=== PATIENT | female | born 1990 | race Caucasian/White ===

== ENCOUNTER 2016-05-31 08:24 | Outpatient (CLI) | payer MEDICAID ==
[~2016-05-31] VITALS: Ht 177.8 cm; Wt 118.8 kg
[~2016-05-31 08:24] MED LIST: CIPR-17 PO; CLIN300C11 PO; OMEP40CA36 PO; ONDA-42 SL; Oxycodone Hcl/Acetaminophen PO; SCR1T1 PO; SULF-222 PO
[2016-05-31 08:45] VITALS: BP 132/81
[2016-05-31] MEDS ORDERED: FLU TRIvalent (5 YOA+) 2016-17 (AFLURIA) 0.5 ML IM ONE (09:45)
[2016-05-31 09:55] LABS: MEAN PLATELET VOLUME 9.4 FL (7.4-10.4); RED BLOOD COUNT 3.73 10^6/uL (4.35-5.85); RED CELL DISTRIBUTION WIDTH 13.3 % (10.0-14.5)
[2016-05-31 09:58] LABS: ALANINE AMINOTRANSFERASE 16 U/L (0-55); ALBUMIN 3.4 G/DL (3.2-4.5); ANION GAP 8 MMOL/L (5-14); ASPARTATE AMINO TRANSFERASE 12 U/L (5-34); BILIRUBIN,TOTAL 0.3 MG/DL (0.1-1.0); BLOOD UREA NITROGEN 6 MG/DL (7-18); BUN/CREATININE RATIO 10; CALCIUM 8.4 MG/DL (8.5-10.1); CARBON DIOXIDE 18 MMOL/L (21-32); CHLORIDE 109 MMOL/L (98-107); CREATININE SERUM 0.59 MG/DL (0.60-1.30); GFR ESTIMATED > 60; GLUCOSE 80 MG/DL (70-105); POTASSIUM 3.8 MMOL/L (3.6-5.0); SODIUM 135 MMOL/L (135-145); TOTAL PROTEIN 6.1 G/DL (6.4-8.2)
[2016-05-31] MEDS ORDERED: PREN-37 PO (10:13)
--- NOTE | 2016-06-06 13:48 | Physician Query-Final Dx ---
SUNIL GREENE 06/06/16 1348: Clinic Account Progress/Dx Physician Query: Please give diagnosis Date of Service May 31, 2016 at 08:24 PETEY WEN DO 06/18/16 1244: Clinic Account Progress/Dx DIAGNOSIS: Diagnosis 1. 20 week gestational age 2. Abdominal pain SUNIL GREENE Jun 06, 2016 13:48 PETEY WEN DO Jun 18, 2016 12:44
== END 2016-05-31 10:17 | disposition home or self-care (01) ==
LOC: WSo 08:24 → LDRP 08:24 → WSo 10:17
PROVIDERS: ATTEND Family Medicine
DX: O99.89 Other specified diseases and conditions complicating pregnancy, childbirth and the puerperium (principal); R10.10 Upper abdominal pain, unspecified; Z3A.20 20 weeks gestation of pregnancy
CPT/HCPCS: 36415; 80053; 85027; 99213

== ENCOUNTER → 2016-06-01 | Outpatient (CLI) | payer MEDICAID ==
[~2016-06-01] MED LIST changes: +PREN-37 PO
--- NOTE | 2016-06-01 12:47 | Diagnostic Imaging Report ---
OB ultrasound. INDICATION: Uncertain dates. FINDINGS: The previous OB ultrasound exam performed on 03/07/2016 noted a single live intrauterine of approximately 9 weeks 2 days gestation +/- 1 week. On this exam, the fetus is again identified. The fetus is in transverse presentation. heart motion is noted although the heart rate is not recorded. There are no abnormalities identified. However, the cord insertion is not particularly well visualized. The growth parameters are fairly uniform and have progressed as expected since the prior exam. The growth parameters are as follows: BPD: 4.78, 20 weeks 4 days. Head circumference: 19.28, 20 weeks 4 days. Abdominal circumference: 17.67, 22 weeks 4 days. Femur length: 3.55, 21 weeks 2 days. The placenta is posterior and there is no previa. The amniotic fluid volume is within normal limits. The cervix is measured and is estimated to be 4.1 cm in length. IMPRESSION: 1. There is a single live fetus of approximately 20 weeks 4 days gestation +/- 1 week. The EDC remains October 08, 2016. 2. There are no abnormalities identified although the cord insertion is not well visualized. It may prove worthwhile to have a short-term (4-6 weeks) follow-up exam for further evaluation of the cord insertion. 3. The growth parameters have progressed as expected since the prior study. Dictated by: Dictated on workstation # [id number]
== END ==
LOC: RAD 09:53
PROVIDERS: ATTEND Family Medicine
DX: Z34.82 Encounter for supervision of other normal pregnancy, second trimester (principal)
CPT/HCPCS: 76805

== ENCOUNTER 2016-09-13 17:35 | Outpatient (CLI) | payer MEDICAID ==
[2016-09-13] VITALS (11 sets, daily range): BP systolic 127–182; BP diastolic 73–101
[~2016-09-13] VITALS: Ht 177.8 cm; Wt 125.2 kg
--- NOTE | 2016-09-13 19:42 | Diagnostic Imaging Report ---
INDICATION: Hypertension. TECHNIQUE: Multiple real-time grayscale images were obtained of the gravid uterus in various projections. FINDINGS: There is a single living intrauterine in cephalic presentation. The heart rate is 140 beats per minute. The amniotic fluid index is 9.3. The placenta is to the right. biophysical profile score is 8 out of 8. IMPRESSION: Normal biophysical profile score of 8 out of 8. Dictated by: Dictated on workstation # [id number]
--- NOTE | 2016-09-14 20:07 | Physician Query-Final Dx ---
WILLY WILLETT 09/14/16 2007: Clinic Account Progress/Dx Physician Query: Please give diagnosis Date of Service September 13, 2016 at 17:35 RADHA ARMENTA MD 09/20/16 2155: Clinic Account Progress/Dx DIAGNOSIS: Diagnosis Chronic HTN in third trimester rule out Pre eclampsia Proteinuria WILLY WILLETT September 14, 2016 20:07 RADHA ARMENTA MD September 20, 2016 21:55
== END 2016-09-13 20:48 | disposition home or self-care (01) ==
LOC: LDRP 17:35 → WSo 17:35
PROVIDERS: ATTEND Family Medicine
DX: O10.913 Unspecified pre-existing hypertension complicating pregnancy, third trimester (principal); O12.13 Gestational proteinuria, third trimester; Z3A.36 36 weeks gestation of pregnancy
CPT/HCPCS: 76819; 99213

== ENCOUNTER → 2016-09-13 | Outpatient (CLI) | payer MEDICAID ==
[2016-09-13 17:27] LABS: PROTEIN/CREATININE RATIO 0.09
== END ==
LOC: LAB 16:50
PROVIDERS: ATTEND Family Medicine
DX: O12.13 Gestational proteinuria, third trimester (principal)
CPT/HCPCS: 82570; 84156

== ENCOUNTER → 2016-09-14 | Outpatient (CLI) | payer MEDICAID ==
[2016-09-14 21:32] LABS: PROTEIN/CREATININE RATIO 0.08
== END ==
LOC: LAB 19:28
PROVIDERS: ATTEND Family Medicine
DX: O12.13 Gestational proteinuria, third trimester (principal)
CPT/HCPCS: 82570; 84156

== ENCOUNTER 2016-10-03 18:08 | Inpatient (IN) | payer MEDICAID ==
[~2016-10-03] VITALS: Ht 177.8 cm; Wt 124.3 kg
[2016-10-03 18:30] VITALS: BP 131/73
[2016-10-03] MEDS ORDERED: MINERAL OIL CONCENTRATE 99.9% 15 ML UDC TOP PRN (18:45)
[2016-10-03] MEDS: D5 LR IV SOLUTION 1,000 ML IV SCH (18:52)
[2016-10-03 19:20] VITALS: BP 148/78
[2016-10-03 19:38] LABS: BASOPHILS % (AUTO) 0 % (0-10); EOSINOPHILS # (AUTO) 0.3 10^3/uL (0.0-0.3); EOSINOPHILS % (AUTO) 2 % (0-10); LYMPHOCYTES # (AUTO) 2.5 X 10^3 (1.0-4.0); LYMPHOCYTES % (AUTO) 21 % (12-44); MEAN CORPUSCULAR HEMOGLOBIN 30 PG (25-34); MEAN CORPUSCULAR HGB CONC 34 G/DL (32-36); MEAN CORPUSCULAR VOLUME 89 FL (80-99); MEAN PLATELET VOLUME 9.5 FL (7.4-10.4); MONOCYTES % (AUTO) 8 % (0-12); NEUTROPHILS % (AUTO) 68 % (42-75); PLATELET COUNT 249 10^3/uL (130-400); RED BLOOD COUNT 4.03 10^6/uL (4.35-5.85); RED CELL DISTRIBUTION WIDTH 14.6 % (10.0-14.5); WHITE BLOOD COUNT 11.8 10^3/uL (4.3-11.0)
[2016-10-03] MEDS ORDERED: DINOPROSTONE 10 MG (CERVIDIL) INSERT ONE (19:38)
[2016-10-03] MEDS ORDERED: DINOPROSTONE 10 MG (CERVIDIL) INSERT PV NR (19:45)
[2016-10-03 19:52] LABS: BILIRUBIN,URINE NEGATIVE (NEGATIVE); KETONES,URINE NEGATIVE (NEGATIVE); LEUKOCYTE ESTERASE ,URINE 2+ (NEGATIVE); NITRITE,URINE NEGATIVE (NEGATIVE); PH,URINE 6 (5-9); PROTEIN,URINE 1+ (NEGATIVE); UROBILINOGEN,URINE NORMAL (NORMAL)
[2016-10-03 20:05] LABS: ALANINE AMINOTRANSFERASE 11 U/L (0-55); ALBUMIN 3.1 G/DL (3.2-4.5); ASPARTATE AMINO TRANSFERASE 10 U/L (5-34); BILIRUBIN,TOTAL 0.3 MG/DL (0.1-1.0); BLOOD UREA NITROGEN 7 MG/DL (7-18); BUN/CREATININE RATIO 11; CALCIUM 8.9 MG/DL (8.5-10.1); CARBON DIOXIDE 19 MMOL/L (21-32); CREATININE SERUM 0.62 MG/DL (0.60-1.30); GFR ESTIMATED > 60; GLUCOSE 110 MG/DL (70-105); TOTAL PROTEIN 6.2 G/DL (6.4-8.2)
[2016-10-03 20:10] LABS: CALCIUM OXALATE CRYSTALS,UR FEW /LPF
[2016-10-03 20:20] LABS: ANION GAP 11 MMOL/L (5-14); CHLORIDE 108 MMOL/L (98-107); POTASSIUM 3.3 MMOL/L (3.6-5.0); SODIUM 138 MMOL/L (135-145)
[2016-10-03 21:10] VITALS: BP 131/71
[2016-10-03 21:43] LABS: PROTEIN/CREATININE RATIO 0.09
[2016-10-03] MEDS ORDERED: CATHETER FLUSH 10 ML SYR IV SCH (22:00)
[2016-10-03 22:10] VITALS: BP 128/74
[2016-10-03 23:10] VITALS: BP 133/67
[2016-10-04] VITALS (39 sets, daily range): BP systolic 110–161; BP diastolic 55–99
[2016-10-04] MEDS: D5 LR IV SOLUTION 1,000 ML IV SCH ×2 (02:49→10:23)
--- NOTE | 2016-10-04 08:17 | OB Labor & Delivery Record ---
L&D History Date of Service Date of Service: Oct 04, 2016 History Expected Date of Delivery: Oct 11, 2016 Gestational Age in Weeks: 38 Hx : 3 Hx Para: 2 Complications Events: Routine care (Chronic HTN) Operative Indications (Cesarea: N/A-Vaginal Delivery Intrapartal Events: None L&D Stage1 Stage One Onset of Labor - Date: Oct 04, 2016 Onset of Labor - Time: 04:00 Monitors and Tracing Monitor Mode: External Heart Rate: 130 Station: -2 Vital Signs VS - Last 72 Hours, by Label 10/03/16 10/03/16 10/03/16 10/03/16 18:30 19:20 21:10 22:10 Temp 98.9 99.0 97.8 Pulse 95 90 75 75 Resp 18 18 18 18 B/P (MAP) 131/73 148/78 131/71 128/74 10/03/16 10/04/16 10/04/16 10/04/16 23:10 00:10 02:10 03:10 Pulse 81 75 81 76 Resp 18 18 18 18 B/P (MAP) 133/67 110/59 137/65 129/59 10/04/16 10/04/16 10/04/16 10/04/16 04:10 05:10 06:10 07:10 Pulse 68 78 79 84 Resp 18 18 18 18 B/P (MAP) 114/55 136/85 130/62 135/83 Rupture of Membranes Spontaneous Ruture of Membrane: No Amniotic Membrane Rupture Time: 08:14 Amniotic Membrane Fluid Desc.: Clear Progress/Notes 0814 AROM by ANALI Holguin / L&D Stage2 Monitors and Tracing Monitor Mode: External Heart Rate: 130 Monitor Decelerations: Early Short Term Variability: Present Position: Left Occiput Anterior Presentation: Vertex Cord Descript/Complications Cord Vessel Description: 3 Vessels Delivery Type Infant Delivery Method: Spontaneous Vaginal Anterior Shoulder: Right Episiotomy/Perineal Laceration Laceraction(s)/Extensions: No Condition of Delivery Delivery Date & Time: 10/04/2016 1515 1 minute Comment: 8 5 minute Comment: 9 Notes BW [id number]#2 Condition of Condition of : Living Exam: No Observed Abnormalities Resuscitation Resuscitation: N/A - Spontaneous Resp L&D Stage3 Stage Three Stage III Date: Oct 04, 2016 Stage III Time: 15:27 Pictocin Pitocin Administration Comment: 2 Bags Open Placenta Delivery Placenta Delivery: Spontaneous Delivery Summary Summary Vaginal blood loss >500ml: No 150 Attending at delivery: Kiersten Condition of Delivery Examined: Cervix Examined Post Hemorrhage: No Condition of Mother Stable in Delivery Suite Condition of (s) Stable in Delivery Suite with parents RADHA ARMENTA MD Oct 04, 2016 08:17
--- NOTE | 2016-10-04 08:23 | History & Physical-OB ---
OB - Chief Complaint & HPI Date Date of Admission: Date of Admission: October 03, 2016 at 18:08 Chief Complaint/History OB-Reason for Admission/Chief: Induction of Labor (Chronic HTN) Hx : 3 Hx Para: 2 Expected Date of Delivery: Oct 11, 2016 Gestational Age in Weeks: 38 Gestational Age in Days: 6 Indication for induction: medical complication (Chronic HTN) History of Labs B+, Ab neg, RPR/HIV/Hep B NR, Rub Imm, GBS neg Allergies and Home Medications Allergies Uncoded Allergies: EYE DROPS (Allergy, Mild, 10/03/16) Home Medications Vit/Iron Fumarate/FA 1 Each Tablet, 1 EACH PO kimberly, (Reported) OB - History Hx of Present Ultrasounds: Normal mid trimester US Obstetrical Complications: Other (chronic HTN) Medical Complications: None Obstetrical History Hx : 3 Hx Para: 2 Delivery History Adverse Rxn to Tranfusion: No Patient Past Medical History Chronic HTN Social History/Family History HIV/AIDS: No Recent Infectious Disease Expo: No Sexually Transmitted Disease: No Alcohol Use: Denies Use Recreational Drug Use: Yes Smoking Cessation: Current some day smoker (MJ) Immunizations Tetanus Booster (TDap): Less than 5yrs Rubella: immune RPR/VDRL: Negative GBS Status: Negative HBsAG: Negative OB - Admission Exam Physical Exam Vitals: Vital Signs 10/03/16 10/04/16 22:10 07:10 Temp 97.8 Pulse 84 Resp 18 B/P (MAP) 135/83 HEENT: NCAT Lungs: Clear Abdomen: Non tender Extremities: Normal Reflexes: Normal Cervical Dilatation: 4cm Effacement: 50% Station: -1 Membranes: Intact Heart Rate: 140's Accelerations: Accelerations Present Decelerations: No Decelerations Short Term Variability: Present Labs Laboratory Tests Test 10/03/16 18:52 10/03/16 19:15 Range/Units White Blood Count 11.8 H 4.3-11.0 10^3/uL Red Blood Count 4.03 L 4.35-5.85 10^6/uL Hemoglobin 12.0 11.5-16.0 G/DL Hematocrit 36 35-52 % Mean Corpuscular Volume 89 80-99 FL Mean Corpuscular Hemoglobin 30 25-34 PG Mean Corpuscular Hemoglobin Concent 34 32-36 G/DL Red Cell Distribution Width 14.6 H 10.0-14.5 % Platelet Count 249 130-400 10^3/uL Mean Platelet Volume 9.5 7.4-10.4 FL Neutrophils (%) (Auto) 68 42-75 % Lymphocytes (%) (Auto) 21 12-44 % Monocytes (%) (Auto) 8 0-12 % Eosinophils (%) (Auto) 2 0-10 % Basophils (%) (Auto) 0 0-10 % Neutrophils # (Auto) 8.0 H 1.8-7.8 X 10^3 Lymphocytes # (Auto) 2.5 1.0-4.0 X 10^3 Monocytes # (Auto) 1.0 0.0-1.0 X 10^3 Eosinophils # (Auto) 0.3 0.0-0.3 10^3/uL Basophils # (Auto) 0.0 0.0-0.1 10^3/uL Sodium Level 138 135-145 MMOL/L Potassium Level 3.3 L 3.6-5.0 MMOL/L Chloride Level 108 H 98-107 MMOL/L Carbon Dioxide Level 19 L 21-32 MMOL/L Anion Gap 11 5-14 MMOL/L Blood Urea Nitrogen 7 7-18 MG/DL Creatinine 0.62 0.60-1.30 MG/DL Estimat Glomerular Filtration Rate > 60 BUN/Creatinine Ratio 11 Glucose Level 110 H 70-105 MG/DL Calcium Level 8.9 8.5-10.1 MG/DL Total Bilirubin 0.3 0.1-1.0 MG/DL Aspartate Amino Transf (AST/SGOT) 10 5-34 U/L Alanine Aminotransferase (ALT/SGPT) 11 0-55 U/L Alkaline Phosphatase 94 40-136 U/L Total Protein 6.2 L 6.4-8.2 G/DL Albumin 3.1 L 3.2-4.5 G/DL Urine Color YELLOW Urine Clarity SLIGHTLY CLOUDY Urine pH 6 5-9 Urine Specific [place] 1.020 1.016-1.022 Urine Protein 14 H 6-12 MG/DL Urine Glucose (UA) NEGATIVE NEGATIVE Urine Ketones NEGATIVE NEGATIVE Urine Nitrite NEGATIVE NEGATIVE Urine Bilirubin NEGATIVE NEGATIVE Urine Urobilinogen NORMAL NORMAL MG/DL Urine Leukocyte Esterase 2+ H NEGATIVE Urine RBC (Auto) NEGATIVE NEGATIVE Urine RBC NONE /HPF Urine WBC 5-10 H /HPF Urine Squamous Epithelial Cells 10-25 H /HPF Urine Crystals PRESENT H /LPF Urine Calcium Oxalate Crystals FEW H /LPF Urine Bacteria TRACE /HPF Urine Casts NONE /LPF Urine Mucus NEGATIVE /LPF Urine Culture Indicated YES Urine Creatinine 162 H 30-125 MG/DL Urine Protein/Creatinine Ratio 0.09 Urine Opiates Screen NEGATIVE NEGATIVE Urine Oxycodone Screen NEGATIVE NEGATIVE Urine Methadone Screen NEGATIVE NEGATIVE Urine Propoxyphene Screen NEGATIVE NEGATIVE Urine Barbiturates Screen NEGATIVE NEGATIVE Ur Tricyclic Antidepressants Screen NEGATIVE NEGATIVE Urine Phencyclidine Screen NEGATIVE NEGATIVE Urine Amphetamines Screen NEGATIVE NEGATIVE Urine Methamphetamines Screen NEGATIVE NEGATIVE Urine Benzodiazepines Screen NEGATIVE NEGATIVE Urine Cocaine Screen NEGATIVE NEGATIVE Urine Cannabinoids Screen POSITIVE H NEGATIVE OB - Assessment/Plan/Diagnosis Assessment Assessment: induction of labor Plan Plan: Expectant Management, Induction Induction Method: other (Cervidil) Copy Copies To 1: RADHA ARMENTA MD, HOLLY R MD Oct 04, 2016 08:23
[2016-10-04] MEDS ORDERED: OXYTOCIN/NORMAL SALINE 500 ML IV SCH ×2 (08:27→15:55)
[2016-10-04] MEDS ORDERED: BUTORPHANOL INJ 2 MG/ML (STADOL) VIAL IV ONE (12:15)
[2016-10-04] MEDS ORDERED: WITCH HAZEL(TUCKS) 40 EA JAR TOP PRN (16:00)
[2016-10-04] MEDS ORDERED: BENZOCAINE/MENTHOL (DERMOPLAST) 56 ML CAN TP PRN (16:00)
[2016-10-04] MEDS ORDERED: CATHETER FLUSH 10 ML SYR IV SCH (22:00)
[2016-10-04] MEDS: IBUPROFEN 600 MG (MOTRIN) TAB PO SCH (23:25)
[2016-10-05 04:42] VITALS: BP 106/69
[2016-10-05] MEDS: IBUPROFEN 600 MG (MOTRIN) TAB PO SCH ×2 (06:00→14:27)
[2016-10-05 06:53] LABS: BASOPHILS % (AUTO) 0 % (0-10); EOSINOPHILS # (AUTO) 0.2 10^3/uL (0.0-0.3); EOSINOPHILS % (AUTO) 2 % (0-10); LYMPHOCYTES # (AUTO) 3.4 X 10^3 (1.0-4.0); LYMPHOCYTES % (AUTO) 23 % (12-44); MEAN CORPUSCULAR HEMOGLOBIN 30 PG (25-34); MEAN CORPUSCULAR HGB CONC 33 G/DL (32-36); MEAN CORPUSCULAR VOLUME 91 FL (80-99); MEAN PLATELET VOLUME 10.1 FL (7.4-10.4); MONOCYTES # (AUTO) 1.6 X 10^3 (0.0-1.0); MONOCYTES % (AUTO) 11 % (0-12); NEUTROPHILS # (AUTO) 9.5 X 10^3 (1.8-7.8); NEUTROPHILS % (AUTO) 64 % (42-75); PLATELET COUNT 193 10^3/uL (130-400); RED BLOOD COUNT 3.59 10^6/uL (4.35-5.85); RED CELL DISTRIBUTION WIDTH 14.4 % (10.0-14.5); WHITE BLOOD COUNT 14.8 10^3/uL (4.3-11.0)
[2016-10-05] MEDS ORDERED: PRENATAL VITAMIN 1 EA TAB PO SCH (07:00)
[2016-10-05 08:20] VITALS: BP 102/57
[2016-10-05] MEDS ORDERED: IBUP-1773 PO (08:30)
--- NOTE | 2016-10-05 08:34 | Discharge Instructions ---
Discharge Inst-Women's Serv Depart Medications New, Converted or Re-Newed RX: Transmitted to Pharmacy New Medications: Ibuprofen (Ibuprofen) 600 Mg Tablet 600 MG PO Q6H PRN for PAIN-MILD TO MODERATE, #60 TAB 0 Refills Continued Medications: Vit/Iron Fumarate/FA ( Tablet) 1 Each Tablet 1 EACH PO kimberly, TAB Follow Up/Instructions Goal/Follow Up: Follow up with Dr. Burch in 6 weeks for visit. Activity Activity: Activity as Tolerated (avoid strenuous activity x 6 weeks) Driving Instructions: You May Drive Nothing Inside Vagina: No Douching, No [place], No Tampons Diet Discharge Diet: Regular Diet Symptoms to Report to : Fever Over 101 Degrees F, Pain/Pressure in Chest, Heart Beat Irreg/Pounding, Vaginal Bleeding Increase, Cramps in Feet or Legs, Vaginal Discharge Foul, Dizziness/Fainting, Shortness of Breath For Any Problems or Questions: Contact Your Physician Copies To 1: RADHA BURCH MD, BETHANY N MD Oct 05, 2016 08:34
--- NOTE | 2016-10-05 08:34 | Discharge Summary ---
Diagnosis/Chief Complaint Date of Admission October 03, 2016 at 18:08 Date of Discharge October 05, 2016 Admission Diagnosis Admission Diagnosis 38 week gestation Chronic hypertension Induction of labor Discharge Diagnosis s/p spontaneous vaginal delivery with no lacerations asymptomatic anemia Chief Complaint/HPI Chief Complaint/HPI 26 yo at 38w6d admitted for IOL due to chronic hypertension. Discharge Summary-Simple/Stand Procedures Spontaneous vaginal delivery Discharge Physical Examination Allergies: Uncoded Allergies: EYE DROPS (Allergy, Mild, 10/03/16) Vitals & I&Os Vital Sign - Last 12Hours Date Time Temp Pulse Resp B/P (MAP) Pulse Ox O2 Delivery O2 Flow Rate FiO2 10/05/16 04:42 97.7 75 18 106/69 96 General Appearance: Alert, No Acute Distress Respiratory: Clear to Auscultation, Normal Air Movement Cardiovascular: Regular Rate, No Murmurs Abdominal: Other (fundus firm below umbilicus) Extremities: No Edema Psych/Mental Status: Mental Status NL Hospital Course Patient admitted and underwent uncomplicated IOL with uncomplicated and uncomplicated course with asymptomatic mild anemia. Labs Laboratory Tests Test 10/03/16 18:52 10/03/16 19:15 10/05/16 05:50 Range/Units White Blood Count 11.8 H 14.8 H 4.3-11.0 10^3/uL Red Blood Count 4.03 L 3.59 L 4.35-5.85 10^6/uL Hemoglobin 12.0 10.7 L 11.5-16.0 G/DL Hematocrit 36 33 L 35-52 % Mean Corpuscular Volume 89 91 80-99 FL Mean Corpuscular Hemoglobin 30 30 25-34 PG Mean Corpuscular Hemoglobin Concent 34 33 32-36 G/DL Red Cell Distribution Width 14.6 H 14.4 10.0-14.5 % Platelet Count 249 193 130-400 10^3/uL Mean Platelet Volume 9.5 10.1 7.4-10.4 FL Neutrophils (%) (Auto) 68 64 42-75 % Lymphocytes (%) (Auto) 21 23 12-44 % Monocytes (%) (Auto) 8 11 0-12 % Eosinophils (%) (Auto) 2 2 0-10 % Basophils (%) (Auto) 0 0 0-10 % Neutrophils # (Auto) 8.0 H 9.5 H 1.8-7.8 X 10^3 Lymphocytes # (Auto) 2.5 3.4 1.0-4.0 X 10^3 Monocytes # (Auto) 1.0 1.6 H 0.0-1.0 X 10^3 Eosinophils # (Auto) 0.3 0.2 0.0-0.3 10^3/uL Basophils # (Auto) 0.0 0.0 0.0-0.1 10^3/uL Sodium Level 138 135-145 MMOL/L Potassium Level 3.3 L 3.6-5.0 MMOL/L Chloride Level 108 H 98-107 MMOL/L Carbon Dioxide Level 19 L 21-32 MMOL/L Anion Gap 11 5-14 MMOL/L Blood Urea Nitrogen 7 7-18 MG/DL Creatinine 0.62 0.60-1.30 MG/DL Estimat Glomerular Filtration Rate > 60 BUN/Creatinine Ratio 11 Glucose Level 110 H 70-105 MG/DL Calcium Level 8.9 8.5-10.1 MG/DL Total Bilirubin 0.3 0.1-1.0 MG/DL Aspartate Amino Transf (AST/SGOT) 10 5-34 U/L Alanine Aminotransferase (ALT/SGPT) 11 0-55 U/L Alkaline Phosphatase 94 40-136 U/L Total Protein 6.2 L 6.4-8.2 G/DL Albumin 3.1 L 3.2-4.5 G/DL Urine Color YELLOW Urine Clarity SLIGHTLY CLOUDY Urine pH 6 5-9 Urine Specific [place] 1.020 1.016-1.022 Urine Protein 14 H 6-12 MG/DL Urine Glucose (UA) NEGATIVE NEGATIVE Urine Ketones NEGATIVE NEGATIVE Urine Nitrite NEGATIVE NEGATIVE Urine Bilirubin NEGATIVE NEGATIVE Urine Urobilinogen NORMAL NORMAL MG/DL Urine Leukocyte Esterase 2+ H NEGATIVE Urine RBC (Auto) NEGATIVE NEGATIVE Urine RBC NONE /HPF Urine WBC 5-10 H /HPF Urine Squamous Epithelial Cells 10-25 H /HPF Urine Crystals PRESENT H /LPF Urine Calcium Oxalate Crystals FEW H /LPF Urine Bacteria TRACE /HPF Urine Casts NONE /LPF Urine Mucus NEGATIVE /LPF Urine Culture Indicated YES Urine Creatinine 162 H 30-125 MG/DL Urine Protein/Creatinine Ratio 0.09 Urine Opiates Screen NEGATIVE NEGATIVE Urine Oxycodone Screen NEGATIVE NEGATIVE Urine Methadone Screen NEGATIVE NEGATIVE Urine Propoxyphene Screen NEGATIVE NEGATIVE Urine Barbiturates Screen NEGATIVE NEGATIVE Ur Tricyclic Antidepressants Screen NEGATIVE NEGATIVE Urine Phencyclidine Screen NEGATIVE NEGATIVE Urine Amphetamines Screen NEGATIVE NEGATIVE Urine Methamphetamines Screen NEGATIVE NEGATIVE Urine Benzodiazepines Screen NEGATIVE NEGATIVE Urine Cocaine Screen NEGATIVE NEGATIVE Urine Cannabinoids Screen POSITIVE H NEGATIVE Discharge Instructions to patient/family Please see electonic discharge instructions given to patient. Discharge Medications Reviewed and agree with Discharge Medication list on patient's Discharge Instruction sheet Clinical Quality Measures DVT/VTE Risk/Contraindication: Risk Factor Score Per Nursin RFS Level Per Nursing on Admit: 3=High Copy Copies To 1: TOMASA FAUST MD, BETHANY N MD Oct 05, 2016 8:34 am
== END 2016-10-05 18:30 | disposition home or self-care (01) | DRG 774 ==
LOC: LDRP 18:08
PROVIDERS: ADMIT Family Medicine; ATTEND Family Medicine
PROC: 3E0P7GC Introduction of Other Therapeutic Substance into Female Reproductive, Via Natural or Artificial Opening (ICD-10-PCS; 2016-10-03)
PROC: 10E0XZZ Delivery of Products of Conception, External Approach (ICD-10-PCS; principal; 2016-10-04)
DX: O10.92 Unspecified pre-existing hypertension complicating childbirth (principal); Z37.0 Single live birth; Z3A.38 38 weeks gestation of pregnancy
CPT/HCPCS: 36415; 80053; 80306; 81000; 82570; 84156; 85025; 86850; 86900; 86901; 87088

== ENCOUNTER 2017-09-29 13:09 | Emergency (ER) | payer SELFPAY ==
[~2017-09-29] VITALS: Ht 177.8 cm; Wt 104.3 kg
[~2017-09-29 13:09] MED LIST changes: +IBUP-1773 PO
--- OUTSIDE RECORDS SUMMARY | 2017-09-29 13:14 | XMS REPORT ---
Author Author RADHA ARMENTA Organization [facility] Address [address] [place] [address] Care Team Providers Care Conference Planner Name Role Phone RADHA ARMENTA Unavailable PROBLEMS Type Condition ICD9-CM Code [id number] Code Onset Dates Condition Status SNOMED Code Problem Family history of diabetes mellitus Z83.3 Active 736654799 Problem Chronic tension-type headache, not intractable G44.229 Active 882882293 Problem Tobacco use Z72.0 Active 372488970 Problem Depressed mood F32.9 Active 417567044 Problem BMI 37.0-37.9, adult Z68.37 Active 814413168477521 Problem Surveillance of contraceptive injection Z30.42 Active 837618096 Problem Family history of breast cancer Z80.3 Active 280954499 Problem Essential hypertension I10 Active 03432144 Problem Chronic hypertension during O10.919 Active 71673120 Problem Encounter for dental examination Z01.20 Active 288405320 Problem Atopic dermatitis, unspecified type L20.9 Active 12788852 Problem Chronic hypertension affecting O10.919 Active 78276426 Problem Obesity affecting O99.210 Active 131981853360 ALLERGIES No Known Allergies SOCIAL HISTORY Never Assessed PLAN OF CARE Activity Details Follow Up 4 Weeks Reason: VITAL SIGNS Height 5'10" in 2016-06-27 Weight 265.6 lbs 2016-06-27 Temperature 98.3 degrees Fahrenheit 2016-06-27 Heart Rate 82 bpm 2016-06-27 Respiratory Rate 20 2016-06-27 BMI 38.11 kg/m2 2016-06-27 Blood pressure systolic 130 mmHg 2016-06-27 Blood pressure diastolic 68 mmHg 2016-06-27 MEDICATIONS Medication Instructions Dosage Frequency Start Date End Date Duration Status Triamcinolone Acetonide 0.1 % Externally Twice a day 1 application to affected area 12h Mar, Active 28-0.8 MG Active RESULTS Name Result Date Reference Range UA OB DIP (IN HOUSE) 2016-06-27 Glucose negative Protein trace PROCEDURES Procedure Date Ordered Result Body Site URINE-NO MICRO Jun 27, 2016 IMMUNIZATIONS No Known Immunizations MEDICAL (GENERAL) HISTORY Type Description Date Medical History asthma as a child Medical History depression Medical History Due 10/12/2016 Surgical History cholecystectomy Surgical History Right Leg- Fibula and Tibula repair (6th grade) Hospitalization History Surgery(s)/Childbirth(s) only
--- OUTSIDE RECORDS SUMMARY | 2017-09-29 13:14 | XMS REPORT ---
Author Author RADHA ARMENTA Organization [facility] Address [address] [place] [address] Care Team Providers Care Trekking Guide Name Role Phone RADHA ARMENTA Unavailable PROBLEMS Type Condition ICD9-CM Code GKA32-OW Code Onset Dates Condition Status SNOMED Code Problem Family history of breast cancer Z80.3 Active 809853828 Problem Tobacco use Z72.0 Active 646297622 Problem Family history of diabetes mellitus Z83.3 Active 522884745 Problem Depressed mood F32.9 Active 943374862 Problem BMI 37.0-37.9, adult Z68.37 Active 593481372849730 Problem Surveillance of contraceptive injection Z30.42 Active 502864640 Problem Essential hypertension I10 Active 04629114 Problem Chronic hypertension during O10.919 Active 92527280 Problem Atopic dermatitis, unspecified type L20.9 Active 45144977 Problem Chronic tension-type headache, not intractable G44.229 Active 475547809 Problem Chronic hypertension affecting O10.919 Active 60850434 Problem Obesity affecting O99.210 Active 134585089098 ALLERGIES No Information ENCOUNTERS Encounter Location Date Diagnosis [facility] [address], [place] [address] Nov, care and examination Z39.2 and Essential hypertension I10 [facility] [address] [address] Oct, [facility] [id number] [place] [address] Oct, [facility] [address] [place] [address] Oct, Breast feeding status of mother Z39.1 [facility] [address] [place] [address] September, 38 weeks gestation of Z3A.38 ; Third trimester Z33.1 and Chronic hypertension affecting O10.919 [place] [id number] [place] [address] September, 37 weeks gestation of Z3A.37 ; Chronic hypertension during O10.919 and Third trimester Z34.93 [place] [id number] [place] [address] September, Proteinuria affecting , third trimester O12.13 [place] [id number] [place] [address] September, Proteinuria affecting , third trimester O12.13 [place] [id number] [place] [address] September, care in third trimester Z34.93 ; Chronic hypertension during O10.919 and 36 weeks gestation of Z3A.36 [place] [id number] [place] [address] September, care in third trimester Z34.93 ; Proteinuria affecting , third trimester O12.13 and 35 weeks gestation of Z3A.35 [place] [address] [place] [address] September, Normal in multigravida Z34.80 ; Third trimester Z33.1 and 34 weeks gestation of Z3A.34 [place] [address] [place] [address] Aug, Normal in multigravida Z34.80 ; 32 weeks gestation of Z3A.32 and Third trimester Z33.1 [place] [id number] [place] [address] Aug, Normal in multigravida Z34.80 ; Encounter for immunization Z23 and 31 weeks gestation of Z3A.31 [place] [id number] [place] [address] Jul, 28 weeks gestation of Z3A.28 [facility] [id number] [id number] Jul, Encounter for dental examination Z01.20 [facility] [address] [place] [address] Jun, 24 weeks gestation of Z3A.24 ; Second trimester Z33.1 and Obesity affecting O99.210 [place] [id number] [place] [address] May, Second trimester Z33.1 and 20 weeks gestation of Z3A.20 [place] [id number] [place] [address] Apr, Normal in multigravida Z34.80 and 16 weeks gestation of Z3A.16 [place] [id number] [place] [address] Apr, Elevated blood pressure affecting in first trimester, antepartum O13.1 [place] [id number] [place] [address] Mar, Normal in multigravida Z34.80 ; First trimester Z33.1 and 12 weeks gestation of Z3A.12 [facility] [address] [place] [id number] [place] [address] Mar, Gastroenteritis K52.9 [facility] [address] [place] [id number] [place] [address] Mar, Atopic dermatitis, unspecified type L20.9 [place] [id number] [place] [address] Feb, [place] [id number] [place] [address] Feb, care in first trimester Z34.91 and Normal in multigravida Z34.[address] [id number] [address] Feb, [facility] [address] [facility] [address] [id number] [address] May, Well woman exam Z01.419 ; Encounter for screening for malignant neoplasm of cervix Z12.4 ; Family history of diabetes mellitus Z83.3 ; Family history of breast cancer Z80.3 ; Surveillance of contraceptive injection Z30.42 ; Encounter for counseling regarding contraception Z30.9 ; Chronic tension-type headache, not intractable G44.229 ; Routine screening for STI (sexually transmitted infection) Z11.3 ; BMI 37.0-37.9, adult Z68.37 ; Depressed mood F32.9 and Tobacco use Z72.0 [facility] [address] [facility] [address] [id number] [address] May, Encounter for IUD removal Z30.432 and Encounter for initial prescription of injectable contraceptive Z30.013 IMMUNIZATIONS No Known Immunizations SOCIAL HISTORY Never Assessed REASON FOR VISIT Referral added PLAN OF CARE VITAL SIGNS MEDICATIONS No Known Medications RESULTS No Results PROCEDURES No Known procedures INSTRUCTIONS MEDICATIONS ADMINISTERED No Known Medications MEDICAL (GENERAL) HISTORY Type Description Date Medical History asthma as a child Medical History depression Medical History Due 10/12/2016 Surgical History cholecystectomy Surgical History Right Leg- Fibula and Tibula repair (6th grade) Hospitalization History Surgery(s)/Childbirth(s) only
--- OUTSIDE RECORDS SUMMARY | 2017-09-29 13:14 | XMS REPORT ---
Author Author RADHA ARMENTA [facility] Address [address] [place] [address] Care Team Providers Care Fly Tier Name Role Phone RADHA ARMENTA Unavailable PROBLEMS Type Condition ICD9-CM Code [id number] Code Onset Dates Condition Status SNOMED Code Problem Family history of diabetes mellitus Z83.3 Active 056655470 Problem Chronic tension-type headache, not intractable G44.229 Active 725792344 Problem Tobacco use Z72.0 Active 146612630 Problem Depressed mood F32.9 Active 138875495 Problem BMI 37.0-37.9, adult Z68.37 Active 799717233881638 Problem Surveillance of contraceptive injection Z30.42 Active 280596585 Problem Family history of breast cancer Z80.3 Active 784410429 Problem Essential hypertension I10 Active 44465893 Problem Chronic hypertension during O10.919 Active 99699655 Problem Encounter for dental examination Z01.20 Active 232329293 Problem Atopic dermatitis, unspecified type L20.9 Active 41392374 Problem Chronic hypertension affecting O10.919 Active 86370779 Problem Obesity affecting O99.210 Active [id number] ALLERGIES No Information SOCIAL HISTORY Never Assessed PLAN OF CARE VITAL SIGNS MEDICATIONS No Known Medications RESULTS Name Result Date Reference Range GLUCOSE FLOR 1 HOUR 2016-07-25 Gestational Diabetes Screen 112 65-139 CBC 2016-07-25 WBC 9.6 3.4-10.8 RBC 3.52 3.77-5.28 Hemoglobin 10.6 11.1-15.9 Hematocrit 31.5 34.0-46.6 MCV 90 79-97 MCH 30.1 26.6-33.0 MCHC 33.7 31.5-35.7 RDW 13.5 12.3-15.4 Platelets 251 150-379 Neutrophils 68 Lymphs 21 Monocytes 6 Eos 4 Basos 0 Neutrophils (Absolute) 6.5 1.4-7.0 Lymphs (Absolute) 2.0 0.7-3.1 Monocytes(Absolute) 0.6 0.1-0.9 Eos (Absolute) 0.4 0.0-0.4 Baso (Absolute) 0.0 0.0-0.2 Immature Granulocytes 1 Immature Grans (Abs) 0.1 0.0-0.1 PROCEDURES Procedure Date Ordered Result Body Site [facility] July 25, 2016 VENIPUNCT, ROUTINE* July 25, 2016 IMMUNIZATIONS No Known Immunizations MEDICAL (GENERAL) HISTORY Type Description Date Medical History asthma as a child Medical History depression Medical History Due 10/12/2016 Surgical History cholecystectomy Surgical History Right Leg- Fibula and Tibula repair (6th grade) Hospitalization History Surgery(s)/Childbirth(s) only
--- OUTSIDE RECORDS SUMMARY | 2017-09-29 13:14 | XMS REPORT ---
Author Author RADHA ARMENTA Organization [facility] Address [address] [place] [address] Care Team Providers Care Chilling Hood Operator Name Role Phone RADHA ARMENTA Unavailable PROBLEMS Type Condition ICD9-CM Code [id number] Code Onset Dates Condition Status SNOMED Code Problem Family history of diabetes mellitus Z83.3 Active 330660430 Problem Chronic tension-type headache, not intractable G44.229 Active 845206992 Problem Tobacco use Z72.0 Active 366373805 Problem Depressed mood F32.9 Active 008490860 Problem BMI 37.0-37.9, adult Z68.37 Active 703498128545853 Problem Surveillance of contraceptive injection Z30.42 Active 737640255 Problem Family history of breast cancer Z80.3 Active 866150528 Problem Essential hypertension I10 Active 49880856 Problem Chronic hypertension during O10.919 Active 18119422 Problem Encounter for dental examination Z01.20 Active 183978325 Problem Atopic dermatitis, unspecified type L20.9 Active 01767324 Problem Chronic hypertension affecting O10.919 Active 98276841 Problem Obesity affecting O99.210 Active 957531399988 ALLERGIES No Known Allergies SOCIAL HISTORY No smoking Hx information available PLAN OF CARE Activity Details Follow Up 4 Weeks w/ Kiersten Reason: VITAL SIGNS Height 5'10" in 2016-05-30 Weight 265.0 lbs 2016-05-30 Temperature 98.0 degrees Fahrenheit 2016-05-30 BMI 38.02 kg/m2 2016-05-30 Blood pressure systolic 136 mmHg 2016-05-30 Blood pressure diastolic 70 mmHg 2016-05-30 MEDICATIONS No Known Medications RESULTS Name Result Date Reference Range UA OB DIP (IN HOUSE) 2016-05-30 Glucose negative Protein negative PROCEDURES Procedure Date Ordered Related Diagnosis Body Site URINE-NO MICRO May 30, 2016 Office Visit, Est Pt., Level 3 May 30, 2016 IMMUNIZATIONS No Known Immunizations
--- OUTSIDE RECORDS SUMMARY | 2017-09-29 13:14 | XMS REPORT ---
Author Author RADHA ARMENTA Organization [facility] Address [address] [place] [address] Care Team Providers Care Bee Raiser Name Role Phone RADHA ARMENTA Unavailable PROBLEMS Type Condition ICD9-CM Code [id number]-FN Code Onset Dates Condition Status SNOMED Code Problem Family history of diabetes mellitus Z83.3 Active 606744865 Problem Chronic tension-type headache, not intractable G44.229 Active 991935489 Problem Tobacco use Z72.0 Active 829983335 Problem Depressed mood F32.9 Active 226733337 Problem BMI 37.0-37.9, adult Z68.37 Active 397558748643062 Problem Surveillance of contraceptive injection Z30.42 Active 368225205 Problem Family history of breast cancer Z80.3 Active 845152041 Problem Essential hypertension I10 Active 97930689 Problem Chronic hypertension during O10.919 Active 29712503 Problem Encounter for dental examination Z01.20 Active 672870783 Problem Atopic dermatitis, unspecified type L20.9 Active 29914594 Problem Chronic hypertension affecting O10.919 Active 35610839 Problem Obesity affecting O99.210 Active 237902967811 ALLERGIES No Information SOCIAL HISTORY Never Assessed PLAN OF CARE Activity Details Follow Up IOL this week Reason: VITAL SIGNS Height 5'10" in 2016-10-02 Weight 273.7 lbs 2016-10-02 Temperature 98.0 degrees Fahrenheit 2016-10-02 BMI 39.27 kg/m2 2016-10-02 Blood pressure systolic 140 mmHg 2016-10-02 Blood pressure diastolic 88 mmHg 2016-10-02 MEDICATIONS No Known Medications RESULTS No Results PROCEDURES Procedure Date Ordered Result Body Site URINE-NO MICRO October 02, 2016 IMMUNIZATIONS No Known Immunizations MEDICAL (GENERAL) HISTORY Type Description Date Medical History asthma as a child Medical History depression Medical History Due 10/12/2016 Surgical History cholecystectomy Surgical History Right Leg- Fibula and Tibula repair (6th grade) Hospitalization History Surgery(s)/Childbirth(s) only
--- OUTSIDE RECORDS SUMMARY | 2017-09-29 13:15 | XMS REPORT ---
Author Author RADHA ARMENTA Organization [facility] Address [address] [place] [address] Care Team Providers Care Rent And Housing Investigator Name Role Phone RADHA ARMENTA Unavailable PROBLEMS Type Condition ICD9-CM Code PEH03-WI Code Onset Dates Condition Status SNOMED Code Problem Family history of diabetes mellitus Z83.3 Active 890586999 Problem Chronic tension-type headache, not intractable G44.229 Active 208700991 Problem Tobacco use Z72.0 Active 525741000 Problem Depressed mood F32.9 Active 555246562 Problem BMI 37.0-37.9, adult Z68.37 Active 923831435962091 Problem Surveillance of contraceptive injection Z30.42 Active 301694286 Problem Family history of breast cancer Z80.3 Active 102457668 Problem Essential hypertension I10 Active 43825038 Problem Chronic hypertension during O10.919 Active 93058307 Problem Encounter for dental examination Z01.20 Active 932153598 Problem Atopic dermatitis, unspecified type L20.9 Active 28782246 Problem Chronic hypertension affecting O10.919 Active 74803986 Problem Obesity affecting O99.210 Active 088170483676 ALLERGIES No Information SOCIAL HISTORY Never Assessed PLAN OF CARE VITAL SIGNS MEDICATIONS Medication Instructions Dosage Frequency Start Date End Date Duration Status Breast Pump electric as directed Oct, Active Breast Pump - as directed Oct, Active RESULTS No Results PROCEDURES No Known procedures IMMUNIZATIONS No Known Immunizations MEDICAL (GENERAL) HISTORY Type Description Date Medical History asthma as a child Medical History depression Medical History Due 10/12/2016 Surgical History cholecystectomy Surgical History Right Leg- Fibula and Tibula repair (6th grade) Hospitalization History Surgery(s)/Childbirth(s) only
--- OUTSIDE RECORDS SUMMARY | 2017-09-29 13:15 | XMS REPORT ---
Author Author JOEL ANTUNEZ [facility] Address [address] [place] [address] Care Team Providers Care Landscape Nurseryman Name Role Phone HARMONY JOEL Unavailable PROBLEMS Type Condition ICD9-CM Code LKQ37-CR Code Onset Dates Condition Status SNOMED Code Problem Family history of diabetes mellitus Z83.3 Active 631447591 Problem Chronic tension-type headache, not intractable G44.229 Active 985788260 Problem Tobacco use Z72.0 Active 237495915 Problem Depressed mood F32.9 Active 118361047 Problem BMI 37.0-37.9, adult Z68.37 Active 240726473314008 Problem Surveillance of contraceptive injection Z30.42 Active 597282214 Problem Family history of breast cancer Z80.3 Active 672976438 Problem Essential hypertension I10 Active 64735012 Problem Chronic hypertension during O10.919 Active 05432795 Problem Encounter for dental examination Z01.20 Active 389286017 Problem Atopic dermatitis, unspecified type L20.9 Active 17307433 Problem Chronic hypertension affecting O10.919 Active 52612248 Problem Obesity affecting O99.210 Active 830677061103 ALLERGIES No Known Allergies SOCIAL HISTORY Never Assessed PLAN OF CARE Activity Details Follow Up After October 12, 2016 Reason:MARIA ESTHER/BW/PANO VITAL SIGNS Heart Rate 77 bpm 2016-07-12 Blood pressure systolic 105 mmHg 2016-07-12 Blood pressure diastolic 54 mmHg 2016-07-12 MEDICATIONS Medication Instructions Dosage Frequency Start Date End Date Duration Status Triamcinolone Acetonide 0.1 % Externally Twice a day 1 application to affected area 12h Mar, Active 28-0.8 MG Active RESULTS No Results PROCEDURES Procedure Date Ordered Result Body Site PROPHYLAXIS - ADULT July 12, 2016 TOPICAL FLUORIDE VARNISH July 12, 2016 IMMUNIZATIONS No Known Immunizations MEDICAL (GENERAL) HISTORY Type Description Date Medical History asthma as a child Medical History depression Medical History Due 10/12/2016 Surgical History cholecystectomy Surgical History Right Leg- Fibula and Tibula repair (6th grade) Hospitalization History Surgery(s)/Childbirth(s) only
--- OUTSIDE RECORDS SUMMARY | 2017-09-29 13:15 | XMS REPORT ---
Author Author TOMASA FAUST Organization [facility] Address [address] [place] [address] Care Team Providers Care Refining Engineer Name Role Phone TOMASA FAUST Unavailable PROBLEMS Type Condition ICD9-CM Code YUR76-RD Code Onset Dates Condition Status SNOMED Code Problem Family history of diabetes mellitus Z83.3 Active 044493752 Problem Chronic tension-type headache, not intractable G44.229 Active 579213941 Problem Tobacco use Z72.0 Active 292686736 Problem Depressed mood F32.9 Active 767617749 Problem BMI 37.0-37.9, adult Z68.37 Active 247873644492657 Problem Surveillance of contraceptive injection Z30.42 Active 634009329 Problem Family history of breast cancer Z80.3 Active 947470583 Problem Essential hypertension I10 Active 46605764 Problem Chronic hypertension during O10.919 Active 65491253 Problem Encounter for dental examination Z01.20 Active 607872771 Problem Atopic dermatitis, unspecified type L20.9 Active 21426107 Problem Chronic hypertension affecting O10.919 Active 82448149 Problem Obesity affecting O99.210 Active 652690041453 ALLERGIES No Information SOCIAL HISTORY Never Assessed [...]
--- OUTSIDE RECORDS SUMMARY | 2017-09-29 13:15 | XMS REPORT ---
Author Author RADHA ARMENTA Organization [facility] Address [address] [place] [address] Care Team Providers Care Physician General Internal Medicine Name Role Phone RADHA ARMENTA Unavailable PROBLEMS Type Condition ICD9-CM Code EEV78-GY Code Onset Dates Condition Status SNOMED Code Problem Family history of breast cancer Z80.3 Active 179733832 Problem Tobacco use Z72.0 Active 161643795 Problem Family history of diabetes mellitus Z83.3 Active 001194021 Problem Depressed mood F32.9 Active 099588441 Problem BMI 37.0-37.9, adult Z68.37 Active 326961526549562 Problem Surveillance of contraceptive injection Z30.42 Active 828442351 Problem Essential hypertension I10 Active 66785900 Problem Chronic hypertension during O10.919 Active 64182617 Problem Atopic dermatitis, unspecified type L20.9 Active 89402949 Problem Chronic tension-type headache, not intractable G44.229 Active 030118275 Problem Chronic hypertension affecting O10.919 Active 32815845 Problem Obesity affecting O99.210 Active 496939998789 ALLERGIES No Information ENCOUNTERS Encounter Location Date Diagnosis [facility] [address], [place] [address] Nov, care and examination Z39.2 and Essential hypertension I10 [facility] [address] [address] Oct, [facility] [id number] [place] [address] Oct, [facility] [id number] [place] [address] Oct, Breast feeding status of mother Z39.1 [facility] [address] [place] [address] September, 38 weeks gestation of Z3A.38 ; Third trimester Z33.1 and Chronic hypertension affecting O10.919 [place] [id number] [place] [address] September, 37 weeks gestation of Z3A.37 ; Chronic hypertension during O10.919 and Third trimester Z34.93 [place] [address] [id number] [place] [address] September, Proteinuria affecting , third trimester O12.13 [place] [id number] [place] [address] September, Proteinuria affecting , third trimester O12.13 [place] [address] [id number] [place] [address] September, care in third trimester Z34.93 ; Chronic hypertension during O10.919 and 36 weeks gestation of Z3A.36 [place] [address] [id number] [place] [address] September, care in third trimester Z34.93 ; Proteinuria affecting , third trimester O12.13 and 35 weeks gestation of Z3A.35 [place] [address] [place] [address] September, Normal in multigravida Z34.80 ; Third trimester Z33.1 and 34 weeks gestation of Z3A.34 [place] [address] [place] [address] Aug, Normal in multigravida Z34.80 ; 32 weeks gestation of Z3A.32 and Third trimester Z33.1 [place] [id number] [place] [address] Aug, Normal in multigravida Z34.80 ; Encounter for immunization Z23 and 31 weeks gestation of Z3A.31 [place] [address] [id number] [place] [address] Jul, 28 weeks gestation of Z3A.28 [facility] [id number] [id number] Jul, Encounter for dental examination Z01.20 [facility] [address] [place] [address] Jun, 24 weeks gestation of Z3A.24 ; Second trimester Z33.1 and Obesity affecting O99.210 [place] [id number] [place] [address] May, Second trimester Z33.1 and 20 weeks gestation of Z3A.20 [place] [id number] [place] [address] Apr, Normal in multigravida Z34.80 and 16 weeks gestation of Z3A.16 [place] [id number] [place] [address] Apr, Elevated blood pressure affecting in first trimester, antepartum O13.1 [place] [id number] [place] [address] Mar, Normal in multigravida Z34.80 ; First trimester Z33.1 and 12 weeks gestation of Z3A.12 [facility] [address] [place] [id number] [place] [address] Mar, Gastroenteritis K52.9 [facility] [address] [place] [id number] [place] [address] Mar, Atopic dermatitis, unspecified type L20.9 [place] [id number] [place] [address] Feb, [place] [id number] [place] [address] Feb, care in first trimester Z34.91 and Normal in multigravida Z34.[id number] [address] Feb, [place] [address] [facility] [id number] [address] May, Well woman exam Z01.419 ; Encounter [...] Depressed mood F32.9 and Tobacco use Z72.0 [place] [address] [facility] [id number] [address] May, Encounter for IUD removal Z30.432 and Encounter for initial prescription of injectable contraceptive Z30.013 IMMUNIZATIONS No Known Immunizations SOCIAL HISTORY Never Assessed REASON FOR VISIT OB f/u-1 wk -- kishore florentino PLAN OF CARE Activity Details Follow Up 1 Week Reason: VITAL SIGNS Height 5'10" in 2016-09-11 Weight 277.0 lbs 2016-09-11 Temperature 98.0 degrees Fahrenheit 2016-09-11 Heart Rate 78 bpm 2016-09-11 Respiratory Rate 18 2016-09-11 BMI 39.74 kg/m2 2016-09-11 Blood pressure systolic 138 mmHg 2016-09-11 Blood pressure diastolic 90 mmHg 2016-09-11 MEDICATIONS Medication Instructions Dosage Frequency Start Date End Date Duration Status 28-0.8 MG Active RESULTS Name Result Date Reference Range LDH 2016-09-11 LDH 179 119-226 CBC 2016-09-11 WBC 12.7 3.4-10.8 RBC 3.86 3.77-5.28 Hemoglobin 11.4 11.1-15.9 Hematocrit 34.8 34.0-46.6 MCV 90 79-97 MCH 29.5 26.6-33.0 MCHC 32.8 31.5-35.7 RDW 14.5 12.3-15.4 Platelets 225 150-379 Neutrophils 66 Lymphs 21 Monocytes 9 Eos 3 Basos 0 Neutrophils (Absolute) 8.5 1.4-7.0 Lymphs (Absolute) 2.7 0.7-3.1 Monocytes(Absolute) 1.1 0.1-0.9 Eos (Absolute) 0.4 0.0-0.4 Baso (Absolute) 0.0 0.0-0.2 Immature Granulocytes 1 Immature Grans (Abs) 0.1 0.0-0.1 CMP 2016-09-11 Glucose, Serum 111 65-99 BUN 6 6-20 Creatinine, Serum 0.53 0.57-1.00 eGFR If NonAfricn Am 131 >59 eGFR If Africn Am 152 >59 BUN/Creatinine Ratio 11 9-23 Sodium, Serum 138 134-144 Potassium, Serum 3.5 3.5-5.2 Chloride, Serum 102 96-106 Carbon Dioxide, Total 19 18-29 Calcium, Serum 8.8 8.7-10.2 Protein, Total, Serum 5.7 6.0-8.5 Albumin, Serum 3.2 3.5-5.5 Globulin, Total 2.5 1.5-4.5 A/G Ratio 1.3 1.2-2.2 Bilirubin, Total <0.2 0.0-1.2 Alkaline Phosphatase, S 77 39-117 AST (SGOT) 13 0-40 ALT (SGPT) 12 0-32 UA OB DIP (IN HOUSE) 2016-09-11 Glucose negative Protein 1+ CULTURE, GBS W/ REFLEX SUSCEPTIBILITY 2016-09-11 Strep Gp B Culture+Rflx Negative Negative PROCEDURES Procedure Date Ordered Result Body Site URINE-NO MICRO September 11, 2016 [facility] September 11, 2016 VENIPUNCT, ROUTINE* September 11, 2016 INSTRUCTIONS MEDICATIONS ADMINISTERED No Known Medications MEDICAL (GENERAL) HISTORY Type Description Date Medical History asthma as a child Medical History depression Medical History Due 10/12/2016 Surgical History cholecystectomy Surgical History Right Leg- Fibula and Tibula repair (6th grade) Hospitalization History Surgery(s)/Childbirth(s) only
--- OUTSIDE RECORDS SUMMARY | 2017-09-29 13:15 | XMS REPORT ---
Author Author RADHA ARMENTA Organization [facility] Address [address] [place] [address] Care Team Providers Care Patient Access Specialist Name Role Phone RADHA ARMENTA Unavailable PROBLEMS Type Condition ICD9-CM Code CHJ94-NQ Code Onset Dates Condition Status SNOMED Code Problem Family history of diabetes mellitus Z83.3 Active 114766276 Problem Chronic tension-type headache, not intractable G44.229 Active 346322773 Problem Tobacco use Z72.0 Active 372770597 Problem Depressed mood F32.9 Active 191774998 Problem BMI 37.0-37.9, adult Z68.37 Active 574898573641368 Problem Surveillance of contraceptive injection Z30.42 Active 546115261 Problem Family history of breast cancer Z80.3 Active 033916745 Problem Essential hypertension I10 Active 95429117 Problem Chronic hypertension during O10.919 Active 46466586 Problem Encounter for dental examination Z01.20 Active 221954675 Problem Atopic dermatitis, unspecified type L20.9 Active 63798977 Problem Chronic hypertension affecting O10.919 Active 20029843 Problem Obesity affecting O99.210 Active 339148895574 ALLERGIES No Known Allergies SOCIAL HISTORY Never Assessed PLAN OF CARE Activity Details Follow Up 1 Week Reason: VITAL SIGNS Height 5'10" in 2016-09-04 Weight 275 lbs 2016-09-04 Temperature 98.0 degrees Fahrenheit 2016-09-04 Heart Rate 80 bpm 2016-09-04 Respiratory Rate 20 2016-09-04 BMI 39.45 kg/m2 2016-09-04 Blood pressure systolic 124 mmHg 2016-09-04 Blood pressure diastolic 82 mmHg 2016-09-04 MEDICATIONS Medication Instructions Dosage Frequency Start Date End Date Duration Status 28-0.8 MG Active RESULTS No Results PROCEDURES Procedure Date Ordered Result Body Site URINE-NO MICRO September 04, 2016 IMMUNIZATIONS No Known Immunizations MEDICAL (GENERAL) HISTORY Type Description Date Medical History asthma as a child Medical History depression Medical History Due 10/12/2016 Surgical History cholecystectomy Surgical History Right Leg- Fibula and Tibula repair (6th grade) Hospitalization History Surgery(s)/Childbirth(s) only
--- OUTSIDE RECORDS SUMMARY | 2017-09-29 13:15 | XMS REPORT ---
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 Name Role Phone RADHA ARMENTA Unavailable PROBLEMS Type Condition ICD9-CM Code [id number] Code Onset Dates Condition Status SNOMED Code Problem Family history of breast cancer Z80.3 Active 041072197 Problem Tobacco use Z72.0 Active 743040992 Problem Family history of diabetes mellitus Z83.3 Active 514550554 Problem Depressed mood F32.9 Active 273310245 Problem BMI 37.0-37.9, adult Z68.37 Active 569099332070977 Problem Surveillance of contraceptive injection Z30.42 Active 642445066 Problem Essential hypertension I10 Active 43225177 Problem Chronic hypertension during O10.919 Active 52194243 Problem Atopic dermatitis, unspecified type L20.9 Active 41303087 Problem Chronic tension-type headache, not intractable G44.229 Active 920934385 Problem Chronic hypertension affecting O10.919 Active 19931904 Problem Obesity affecting O99.210 Active [id number] ALLERGIES No Known Allergies ENCOUNTERS Encounter Location Date Diagnosis [place] [id number] [address] Nov, care and examination Z39.2 and Essential hypertension I10 [facility] [address] [address] Oct, [facility] [id number] [place] [address] Oct, [facility] [id number] [place] [address] Oct, Breast feeding status of mother Z39.1 [facility] [id number] [place] [address] September, 38 weeks gestation of Z3A.38 ; Third trimester Z33.1 and Chronic hypertension affecting O10.919 [place] [address] [id number] [place] [address] September, 37 weeks gestation of Z3A.37 ; Chronic hypertension during O10.919 and Third trimester Z34.93 [place] [address] [id number] [place] [address] September, Proteinuria affecting , third trimester O12.13 [place] [address] [id number] [place] [address] September, Proteinuria affecting , third trimester O12.13 [place] [address] [id number] [place] [address] September, care in third trimester Z34.93 ; Chronic hypertension during O10.919 and 36 weeks gestation of Z3A.36 [place] [address] [id number] [place] [address] September, care in third trimester Z34.93 ; Proteinuria affecting , third trimester O12.13 and 35 weeks gestation of Z3A.35 [place] [address] [place] [address] September, Normal in multigravida Z34.80 ; Third trimester Z33.1 and 34 weeks gestation of Z3A.34 [place] [address] [place] [address]- [address] Aug, Normal in multigravida Z34.80 ; 32 weeks gestation of Z3A.32 and Third trimester Z33.1 [place] [address] [id number] [place] [address] Aug, Normal in multigravida Z34.80 ; Encounter for immunization Z23 and 31 weeks gestation of Z3A.31 [place] [address] [place] [id number] [place] [address]- [address] Jul, 28 weeks gestation of Z3A.28 [facility] [id number] [id number] Jul, Encounter for dental examination Z01.20 [facility] [address] [place] [address] Jun, 24 weeks gestation of Z3A.24 ; Second trimester Z33.1 and Obesity affecting O99.210 [place] [address] [place] [id number] [place] [address] May, Second trimester Z33.1 and 20 weeks gestation of Z3A.20 [place] [address] [place] [id number] [place] [address] Apr, Normal in multigravida Z34.80 and 16 weeks gestation of Z3A.16 [place] [id number] [place] [address] Apr, Elevated blood pressure affecting in first trimester, antepartum O13.1 [place] [id number] [place] [address] 9[address]- [address] Mar, Normal in multigravida Z34.80 ; First trimester Z33.1 and 12 weeks gestation of Z3A.12 [facility] [address] [place] [id number] [place] [address] Mar, Gastroenteritis K52.9 [facility] [address] [place] [id number] [place] [address] Mar, Atopic dermatitis, unspecified type L20.9 [place] [id number] [place] [address] Feb, [place] [id number] [place] [address] Feb, care in first trimester Z34.91 and Normal in multigravida Z34.[id number] [place] [address] Feb, [facility] [address] [facility] [id number] [address] May, Well woman exam Z01.419 ; Encounter [...] Depressed mood F32.9 and Tobacco use Z72.0 [place] [address] [facility] [id number] [address] May, Encounter for IUD removal Z30.432 and Encounter for initial prescription of injectable contraceptive Z30.013 IMMUNIZATIONS No Known Immunizations SOCIAL HISTORY Never Assessed REASON FOR VISIT OB-6 week 0-- florentino ma PLAN OF CARE Activity Details Follow Up 2 Weeks for Blood pressure check Reason: VITAL SIGNS Height 5'10" in 2016-11-12 Weight 255.0 lbs 2016-11-12 Temperature 98.6 degrees Fahrenheit 2016-11-12 Heart Rate 80 bpm 2016-11-12 Respiratory Rate 20 2016-11-12 BMI 36.58 kg/m2 2016-11-12 Blood pressure systolic 150 mmHg 2016-11-12 Blood pressure diastolic 82 mmHg 2016-11-12 MEDICATIONS Medication Instructions Dosage Frequency Start Date End Date Duration Status Womens Omaira Emiliano Active RESULTS No Results PROCEDURES No Known procedures INSTRUCTIONS MEDICATIONS ADMINISTERED No Known Medications MEDICAL (GENERAL) HISTORY Type Description Date Medical History asthma as a child Medical History depression Medical History Due 10/12/2016 Surgical History cholecystectomy Surgical History Right Leg- Fibula and Tibula repair (6th grade) Hospitalization History Surgery(s)/Childbirth(s) only
--- OUTSIDE RECORDS SUMMARY | 2017-09-29 13:15 | XMS REPORT ---
Author Author RADHA ARMENTA Organization [facility] Address [address] [place] [address] Care Team Providers Care Incoming Inspector Name Role Phone RADHA ARMENTA Unavailable PROBLEMS Type Condition ICD9-CM Code [id number] Code Onset Dates Condition Status SNOMED Code Problem Family history of diabetes mellitus Z83.3 Active 379497818 Problem Chronic tension-type headache, not intractable G44.229 Active 391001528 Problem Tobacco use Z72.0 Active 809482374 Problem Depressed mood F32.9 Active 566890122 Problem BMI 37.0-37.9, adult Z68.37 Active 308198478655281 Problem Surveillance of contraceptive injection Z30.42 Active 938374710 Problem Family history of breast cancer Z80.3 Active 997819524 Problem Essential hypertension I10 Active 97935589 Problem Chronic hypertension during O10.919 Active 71315730 Problem Encounter for dental examination Z01.20 Active 564258375 Problem Atopic dermatitis, unspecified type L20.9 Active 34734263 Problem Chronic hypertension affecting O10.919 Active 40885540 Problem Obesity affecting O99.210 Active 742391429847 ALLERGIES No Information SOCIAL HISTORY Never Assessed PLAN OF CARE VITAL SIGNS MEDICATIONS No Known Medications RESULTS Name Result Date Reference Range UA OB DIP (IN HOUSE) 2016-09-20 Glucose Negative Protein Negative PROCEDURES Procedure Date Ordered Result Body Site URINE-NO MICRO September 20, 2016 IMMUNIZATIONS No Known Immunizations MEDICAL (GENERAL) HISTORY Type Description Date Medical History asthma as a child Medical History depression Medical History Due 10/12/2016 Surgical History cholecystectomy Surgical History Right Leg- Fibula and Tibula repair (6th grade) Hospitalization History Surgery(s)/Childbirth(s) only
--- OUTSIDE RECORDS SUMMARY | 2017-09-29 13:16 | XMS REPORT ---
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 Role Phone RADHA ARMENTA Unavailable PROBLEMS Type Condition ICD9-CM Code [id number] Code Onset Dates Condition Status SNOMED Code Problem Family history of diabetes mellitus Z83.3 Active 498769380 Problem Chronic tension-type headache, not intractable G44.229 Active 157632815 Problem Tobacco use Z72.0 Active 691369349 Problem Depressed mood F32.9 Active 320313408 Problem BMI 37.0-37.9, adult Z68.37 Active 309865591517379 Problem Surveillance of contraceptive injection Z30.42 Active 607456117 Problem Family history of breast cancer Z80.3 Active 989365436 Problem Essential hypertension I10 Active 77370657 Problem Chronic hypertension during O10.919 Active 90264587 Problem Encounter for dental examination Z01.20 Active 431855282 Problem Atopic dermatitis, unspecified type L20.9 Active 21808567 Problem Chronic hypertension affecting O10.919 Active 33774666 Problem Obesity affecting O99.210 Active 487642648434 ALLERGIES No Information SOCIAL HISTORY Never Assessed PLAN OF CARE Activity Details Follow Up 1 Week with BP kolton check on with NST Reason: VITAL SIGNS Height 5'10" in 2016-09-17 Weight 276.1 lbs 2016-09-17 Temperature 98.6 degrees Fahrenheit 2016-09-17 Heart Rate 77 bpm 2016-09-17 Respiratory Rate 18 2016-09-17 BMI 39.61 kg/m2 2016-09-17 Blood pressure systolic 142 mmHg 2016-09-17 Blood pressure diastolic 81 mmHg 2016-09-17 MEDICATIONS Medication Instructions Dosage Frequency Start Date End Date Duration Status 28-0.8 MG Active RESULTS Name Result Date Reference Range UA OB DIP (IN HOUSE) 2016-09-17 Glucose Negative Protein Trace PROCEDURES Procedure Date Ordered Result Body Site URINE-NO MICRO September 17, 2016 IMMUNIZATIONS No Known Immunizations MEDICAL (GENERAL) HISTORY Type Description Date Medical History asthma as a child Medical History depression Medical History Due 10/12/2016 Surgical History cholecystectomy Surgical History Right Leg- Fibula and Tibula repair (6th grade) Hospitalization History Surgery(s)/Childbirth(s) only
[2017-09-29 14:24] LABS: BASOPHILS # (AUTO) 0.1 10^3/uL (0.0-0.1); BASOPHILS % (AUTO) 0 % (0-10); EOSINOPHILS # (AUTO) 0.1 10^3/uL (0.0-0.3); EOSINOPHILS % (AUTO) 1 % (0-10); HEMATOCRIT 42 % (35-52); HEMOGLOBIN 14.6 G/DL (11.5-16.0); LYMPHOCYTES # (AUTO) 2.5 X 10^3 (1.0-4.0); LYMPHOCYTES % (AUTO) 16 % (12-44); MEAN CORPUSCULAR HEMOGLOBIN 31 PG (25-34); MEAN CORPUSCULAR HGB CONC 35 G/DL (32-36); MEAN CORPUSCULAR VOLUME 89 FL (80-99); MEAN PLATELET VOLUME 10.5 FL (7.4-10.4); MONOCYTES # (AUTO) 2.1 X 10^3 (0.0-1.0); MONOCYTES % (AUTO) 13 % (0-12); NEUTROPHILS # (AUTO) 10.7 X 10^3 (1.8-7.8); NEUTROPHILS % (AUTO) 69 % (42-75); PLATELET COUNT 309 10^3/uL (130-400); RED BLOOD COUNT 4.68 10^6/uL (4.35-5.85); RED CELL DISTRIBUTION WIDTH 13.1 % (10.0-14.5); WHITE BLOOD COUNT 15.5 10^3/uL (4.3-11.0)
[2017-09-29 14:34] LABS: ALANINE AMINOTRANSFERASE 29 U/L (0-55); ALBUMIN 4.5 GM/DL (3.2-4.5); ALKALINE PHOSPHATASE 55 U/L (40-136); BUN/CREATININE RATIO 7; CARBON DIOXIDE 23 MMOL/L (21-32); CHLORIDE 105 MMOL/L (98-107); CREATININE SERUM 0.74 MG/DL (0.60-1.30); GFR ESTIMATED > 60; GLUCOSE 97 MG/DL (70-105); POTASSIUM 3.7 MMOL/L (3.6-5.0); SODIUM 139 MMOL/L (135-145); TOTAL PROTEIN 8.2 GM/DL (6.4-8.2)
[2017-09-29 14:41] LABS: BAND NEUTROPHILS 0 %; BASOPHILS % (MANUAL) 0 %; EOSINOPHILS % (MANUAL) 1 %; LYMPHOCYTES % (MANUAL) 13 %; MONOCYTES % (MANUAL) 12 %; NEUTROPHILS % (MANUAL) 74 %; RBC MORPH NORMAL
[2017-09-29 14:49] LABS: BILIRUBIN,URINE NEGATIVE (NEGATIVE); CLARITY,URINE CLEAR; COLOR,URINE YELLOW; GLUCOSE, URINE (UA) NEGATIVE (NEGATIVE); KETONES,URINE NEGATIVE (NEGATIVE); LEUKOCYTE ESTERASE ,URINE 1+ (NEGATIVE); NITRITE,URINE NEGATIVE (NEGATIVE); PH,URINE 6 (5-9); PROTEIN,URINE NEGATIVE (NEGATIVE); UROBILINOGEN,URINE NORMAL (NORMAL)
[2017-09-29 14:58] LABS: BACTERIA,URINE NEGATIVE /HPF; WBC,URINE 0-2 /HPF
[2017-09-29] MEDS ORDERED: IOHEXOL 350 MG/ML 100 ML (OMNIPAQUE 350) VIAL IV ONE (15:30)
[2017-09-29] MEDS ORDERED: NS 250 ML (IVPB) BAG IV ONE (15:30)
--- NOTE | 2017-09-29 16:21 | Diagnostic Imaging Report ---
PROCEDURE: CT abdomen and pelvis with contrast, rule out appendicitis. TECHNIQUE: Multiple contiguous axial images were obtained through the abdomen and pelvis after the administration of intravenous contrast. INDICATION: Abdominal pain. COMPARISON: None. FINDINGS: Lung bases are clear. Cholecystectomy. The liver, pancreas, spleen, adrenals, kidneys, collecting systems, and unopacified bladder are negative. Normal appearing appendix. There is multiloculated cystic structure in the right pelvis which may be ovarian in origin. Two discrete cysts within this fluid collection measure up to 3.8 and 5.1 cm. There is small amount of fluid layering dependently in the pelvis. No free intraperitoneal air. No evidence of bowel obstruction or inflammation. No lymphadenopathy. No acute osseous findings. IMPRESSION: Multiloculated cystic mass in the right pelvis may be ovarian in origin with multiple large ovarian cyst measuring up to 5.1 cm. There is small amount of fluid layering in the pelvis. A more aggressive cystic ovarian mass, ectopic , ovarian torsion, hydrosalpinx, or an infectious process cannot be excluded. Pelvic ultrasound may be helpful for further characterization. Dictated by: Dictated on workstation # [id number]
[2017-09-29] MEDS ORDERED: fentaNYL INJECTION 100 MCG/2 ML AMP IVP ONE (18:00)
--- NOTE | 2017-09-29 18:15 | ED Abdominal Pain ---
General Chief Complaint: Abdominal/GI Problems Stated Complaint: ABD PAIN Nursing Triage Note: c/o lower abdomen pain that started on the R side 5 days ago. patient denies n/v/d. patient reports that pain began after starting taking protein supplements Sepsis Screen: No Definite Risk Source of Information: Patient Exam Limitations: No Limitations History of Present Illness Date Seen by Provider: September 29, 2017 Time Seen by Provider: 13:47 Initial Comments This 27-year-old young lady presents to the emergency room with right flank pain that has now migrated to the pelvic region bilaterally. Pain started last Saturday, September 25 and has worsened since then. Patient thought perhaps she had constipation and took some laxatives. She has had some watery stools since then. Her last bowel movement was today. She denies any fever, nausea, vomiting, dysuria, hematuria, or vaginal symptoms. She has been taking some whey protein supplements and thought perhaps her pain was related to that. Her last menstrual period was about 3 weeks ago. She is sexually active in a monogamous relationship for about the past 10 years. She denies any history of vaginal or sexually transmitted diseases. Patient states her pain is about 3/ 10 at baseline but is exacerbated significantly with certain activities including driving. The patient is a stabbing and cramping in nature. Patient reports having frequent diarrhea since her cholecystectomy. Allergies and Home Medications Allergies Uncoded Allergies: EYE DROPS (Allergy, Mild, 10/03/16) Home Medications Ibuprofen 600 Mg Tablet, 600 MG PO Q6H PRN for PAIN-MILD TO MODERATE Prescribed by: TOMASA FAUST on 10/05/16 0830 Vit/Iron Fumarate/FA 1 Each Tablet, 1 EACH PO kimberly, (Reported) Patient Home Medication List Home Medication List Reviewed: Yes Review of Systems Constitutional: no symptoms reported EENTM: No Symptoms Reported Respiratory: No Symptoms Reported Cardiovascular: No Symptoms Reported Gastrointestinal: See HPI Genitourinary: See HPI Musculoskeletal: no symptoms reported Skin: no symptoms reported Psychiatric/Neurological: No Symptoms Reported Endocrine: No Symptoms Reported Hematologic/Lymphatic: No Symptoms Reported Past Uoyjrvq-Nvdnks-Rsxccf Hx Patient Social History Alcohol Use: Occasionally Uses Recreational Drug Use: Yes Drug of Choice: marijuana Smoking Status: Current Everyday Smoker Type Used: Cigarettes Former Smoker, Quit: Aug 05, 2015 Recent Foreign Travel: No Contact w/Someone Who Travel: No Recent Infectious Disease Expo: No Recent Hopitalizations: No Physical Abuse: No Sexual Abuse: No Immunizations Up To Date Tetanus Booster (TDap): Less than 5yrs Seasonal Allergies Seasonal Allergies: Yes (pollen) Past Medical History Surgeries: Yes Gallbladder, Orthopedic, Tubal Ligation Respiratory: No Cardiac: No ( induced htn) Neurological: No : No Last Menstrual Period: September 03, 2017 Reproductive Disorders: No Female Reproductive Disorders: Denies Sexually Transmitted Disease: No HIV/AIDS: No Genitourinary: No Gastrointestinal: Yes (gall bladder removed, recurrent diarrhea since then) Gall Bladder Disease Musculoskeletal: Yes (tibia and fibula in 6th grade) Fractures Endocrine: No HEENT: Yes Cataract Loss of Vision: Denies Hearing Impairment: Denies Cancer: No Psychosocial: No Nursing Suicide Risk Score: 0 Integumentary: No Blood Disorders: No Adverse Reaction/Blood Tranf: No Family Medical History Asthma 19 FATHER, Onset:Unknown Cataracts Paternal Grandmother, Onset:Unknown Colon cancer Paternal Aunt, Onset:Unknown Diabetes mellitus Paternal Grandmother, Onset:Unknown FH: alcoholism 19 FATHER, Onset:Unknown 19 MOTHER, Onset:Unknown G8 BROTHER, Onset:Unknown FH: breast cancer Paternal Aunt, Onset:Unknown FH: skin cancer Paternal Grandmother, Onset:Unknown FH: stroke 19 FATHER, Onset:Unknown Kidney disease 19 MOTHER, Onset:Unknown (kidney infections) Paternal Grandmother, Onset:Unknown (kidney infections) Myocardial infarction Paternal Grandfather, Onset:Unknown Physical Exam Vital Signs Vital Signs - First Documented 09/29/17 13:23 Temp 97.2 Pulse 90 Resp 18 B/P (MAP) 145/89 (107) Pulse Ox 97 Capillary Refill : Less Than 3 Seconds General Appearance: WD/WN, no apparent distress HEENT: normal ENT inspection Neck: normal inspection Respiratory: lungs clear, normal breath sounds, no respiratory distress, no accessory muscle use Cardiovascular: regular rate, rhythm, no edema, no murmur Gastrointestinal: normal bowel sounds, soft; No distended, No guarding; tenderness (throughout the pelvic region) Genital/Rectal: normal genital exam, normal vaginal exam, other (no cervical inflammation or abnormal discharge. 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, no motor/sensory deficits, alert, normal mood/affect, oriented x 3 Skin: normal color, warm/dry Progress/Results/Core Measures Results/Orders Lab Results Laboratory Tests Test 09/29/17 13:30 09/29/17 14:43 09/29/17 17:39 Range/Units White Blood Count 15.5 H 4.3-11.0 10^3/uL Red Blood Count 4.68 4.35-5.85 10^6/uL Hemoglobin 14.6 11.5-16.0 G/DL Hematocrit 42 35-52 % Mean Corpuscular Volume 89 80-99 FL Mean Corpuscular Hemoglobin 31 25-34 PG Mean Corpuscular Hemoglobin Concent 35 32-36 G/DL Red Cell Distribution Width 13.1 10.0-14.5 % Platelet Count 309 130-400 10^3/uL Mean Platelet Volume 10.5 H 7.4-10.4 FL Neutrophils (%) (Auto) 69 42-75 % Lymphocytes (%) (Auto) 16 12-44 % Monocytes (%) (Auto) 13 H 0-12 % Eosinophils (%) (Auto) 1 0-10 % Basophils (%) (Auto) 0 0-10 % Neutrophils # (Auto) 10.7 H 1.8-7.8 X 10^3 Lymphocytes # (Auto) 2.5 1.0-4.0 X 10^3 Monocytes # (Auto) 2.1 H 0.0-1.0 X 10^3 Eosinophils # (Auto) 0.1 0.0-0.3 10^3/uL Basophils # (Auto) 0.1 0.0-0.1 10^3/uL Neutrophils % (Manual) 74 % Lymphocytes % (Manual) 13 % Monocytes % (Manual) 12 % Eosinophils % (Manual) 1 % Basophils % (Manual) 0 % Band Neutrophils 0 % Blood Morphology Comment NORMAL Sodium Level 139 135-145 MMOL/L Potassium Level 3.7 3.6-5.0 MMOL/L Chloride Level 105 98-107 MMOL/L Carbon Dioxide Level 23 21-32 MMOL/L Anion Gap 11 5-14 MMOL/L Blood Urea Nitrogen 5 L 7-18 MG/DL Creatinine 0.74 0.60-1.30 MG/DL Estimat Glomerular Filtration Rate > 60 BUN/Creatinine Ratio 7 Glucose Level 97 70-105 MG/DL Calcium Level 10.0 8.5-10.1 MG/DL Total Bilirubin 1.0 0.1-1.0 MG/DL Aspartate Amino Transf (AST/SGOT) 16 5-34 U/L Alanine Aminotransferase (ALT/SGPT) 29 0-55 U/L Alkaline Phosphatase 55 40-136 U/L Total Protein 8.2 6.4-8.2 GM/DL Albumin 4.5 3.2-4.5 GM/DL Serum Test, Qualitative NEGATIVE NEGATIVE Urine Color YELLOW Urine Clarity CLEAR Urine pH 6 5-9 Urine Specific Castaner 1.010 L 1.016-1.022 Urine Protein NEGATIVE NEGATIVE Urine Glucose (UA) NEGATIVE NEGATIVE Urine Ketones NEGATIVE NEGATIVE Urine Nitrite NEGATIVE NEGATIVE Urine Bilirubin NEGATIVE NEGATIVE Urine Urobilinogen NORMAL NORMAL MG/DL Urine Leukocyte Esterase 1+ H NEGATIVE Urine RBC (Auto) NEGATIVE NEGATIVE Urine RBC NONE /HPF Urine WBC 0-2 /HPF Urine Squamous Epithelial Cells 10-25 H /HPF Urine Crystals NONE /LPF Urine Bacteria NEGATIVE /HPF Urine Casts NONE /LPF Urine Mucus MODERATE H /LPF Urine Culture Indicated NO My Orders Orders - ARTUR TORRES MD Ua Culture If Indicated (09/29/17 13:47) Cbc With Automated Diff (09/29/17 14:16) Comprehensive Metabolic Panel (09/29/17 14:16) Hcg,Qualitative Serum (09/29/17 14:16) Saline Lock/Iv-Start (09/29/17 14:16) Manual Differential (09/29/17 13:30) Ct Abd/Pelv W (Appendicitis) (09/29/17 15:15) Iohexol Injection (Omnipaque 350 Mg/Ml 1 (09/29/17 15:30) Ns (Ivpb) (Sodium Chloride 0.9%) (09/29/17 15:30) Pharmacy Communication (Pharmacy Communi (09/29/17 15:27) Wet Prep (09/29/17 17:39) Neisseria Gonorrhea Dna (09/29/17 17:39) Genital Culture (09/29/17 17:39) Jaci Prep (09/29/17 17:39) Fentanyl Injection (Sublimaze Injection (09/29/17 18:00) Us Non Ob Transvaginal [id number] (09/29/17 17:39) Chlamydia Trachomatis Swab (09/29/17 17:39) Ceftriaxone Injection (Rocephin Injectio (09/29/17 20:00) Azithromycin Tablet (Zithromax Tablet) (09/29/17 20:00) Metronidazole Tablet (Flagyl Tablet) (09/29/17 20:00) Ketorolac Injection (Toradol Injection) (09/29/17 20:00) Medications Given in ED Current Medications Medications Dose Ordered Sig/Nick Route Start Time Stop Time Status Last Admin Dose Admin Fentanyl Citrate 50 mcg ONCE ONCE IVP 09/29/17 18:00 09/29/17 18:01 DC 09/29/17 18:14 50 MCG Iohexol 100 ml ONCE ONCE IV 09/29/17 15:30 09/29/17 15:31 DC 09/29/17 16:07 100 ML Sodium Chloride 250 ml ONCE ONCE IV 09/29/17 15:30 09/29/17 15:31 DC 09/29/17 16:07 80 ML Vital Signs/I&O 09/29/17 13:23 Temp 97.2 Pulse 90 Resp 18 B/P (MAP) 145/89 (107) Pulse Ox 97 Blood Pressure Mean: 107 Progress Progress Note #1: Time: 15:15 Progress Note Labs and urine were reviewed. Patient was found to have a leukocytosis. In the context of pelvic pain, appendicitis rule out was felt appropriate. Risks and benefits of CT scan were discussed with the patient and she elects to proceed with the CT scan. Progress Note #2: Time: 17:[address] scan results were reviewed with Dr. Irby. He recommends consulting with Dr. Juan for his gynecologic expertise. Dr. Juan was consulted and recommended performing a pelvic exam and a pelvic ultrasound. Progress Note #3: Time: 18:30 Progress Note Pelvic ultrasound has been ordered. Pelvic exam was done and fentanyl 50 g was given as pretreatment prior to the exam. Genital and cervical exam were relatively unremarkable. Specimens were sent to lab. Care of this patient is being transferred to Augustine Aaron APRN at this time. Progress Note #4: Time: 19:53 Progress Note Ultrasound revealed 2 cystic masses in the pelvis. The right appeared associated with the right ovary. The posterior cyst could be associated with the left ovary but the left ovary was not well seen. I again discussed the case with Dr. Juan. He recommended empiric antibiotic therapy due to the presence of white cells on the wet prep. Pain could be related to the ovarian cysts. He recommended follow-up with the patient's in a closet provider as an outpatient. Toradol was ordered for treatment of the pain. Rocephin and azithromycin were given for antibiotic therapy along with Flagyl for treatment of bacterial vaginosis as clue cells were also present on the vaginal swab. Dr. Juan did not believe the patient had an acute surgical problem. Diagnostic Imaging Diagonstic Imaging: CT Plain Films/CT/US/NM/MRI: abdomen, pelvis Comments CT abdomen and pelvis viewed by me and report reviewed. See report below: NAME: KEVIN YOUNG [employer] REC#: [id number] PT STATUS: REG ER : 1990 PHYSICIAN: ARTUR TORRES MD ADMIT DATE: 09/29/17/ER Signed Date of Exam: 09/29/17 CT ABD/PELV W (APPENDICITIS) PROCEDURE: CT abdomen and pelvis with contrast, rule out appendicitis. TECHNIQUE: Multiple contiguous axial images were obtained through the abdomen and pelvis after the administration of intravenous contrast. INDICATION: Abdominal pain. COMPARISON: None. FINDINGS: Lung bases are clear. Cholecystectomy. The liver, pancreas, spleen, adrenals, kidneys, collecting systems, and unopacified bladder are negative. Normal appearing appendix. There is multiloculated cystic structure in the right pelvis which may be ovarian in origin. Two discrete cysts within this fluid collection measure up to 3.8 and 5.1 cm. There is small amount of fluid layering dependently in the pelvis. No free intraperitoneal air. No evidence of bowel obstruction or inflammation. No lymphadenopathy. No acute osseous findings. IMPRESSION: Multiloculated cystic mass in the right pelvis may be ovarian in origin with multiple large ovarian cyst measuring up to 5.1 cm. There is small amount of fluid layering in the pelvis. A more aggressive cystic ovarian mass, ectopic , ovarian torsion, hydrosalpinx, or an infectious process cannot be excluded. Pelvic ultrasound may be helpful for further characterization. Dictated by: Dictated on workstation # [id number] Dict: 09/29/17 1611 Trans: 09/29/17 1728 Interpreted by: IZABELLA REDDY MD Electronically signed by: IZABELLA REDDY MD 09/29/17 1728 Departure Impression Primary Impression: Pelvic pain Additional Impressions: Bacterial vaginosis Leukocytosis Qualified Codes: D72.829 - Elevated white blood cell count, unspecified Ovarian cyst Qualified Codes: N83.201 - Unspecified ovarian cyst, right side Disposition: 01 HOME, SELF-CARE Condition: Improved Departure-Patient Inst. Decision time for Depature: 19:45 Referrals: RADHA ARMENTA MD (PCP/Family) Primary Care Physician Patient Instructions: Acute Pelvic Pain, Ovarian Cyst (DC) Add. Discharge Instructions: Please your antibiotics as prescribed. Follow-up with your gynecologic provider next week. Review final cultures at that follow-up appointment. Abstain from sexual activity until cleared in your follow-up appointment. For pain, take ibuprofen up to 600 mg every 6 hours as needed. Add Tylenol ( acetaminophen) up to 1000 mg every 6 hours. Return to care if you develop worsening symptoms, especially if you develop fevers over 100. All discharge instructions reviewed with patient and/or family. Voiced understanding. Scripts Metronidazole (Flagyl) 500 Mg Tablet 500 MG PO BID, #14 TAB Prov: ARTUR TORRES MD 09/29/17 Copy Copies To 1: RADHA ARMENTA MD, JOSHUA T MD September 29, 2017 18:15
--- NOTE | 2017-09-29 19:24 | Diagnostic Imaging Report ---
INDICATION: Pelvic pain The uterus measures 11 x 8 x 6 cm. The endometrium measures 6 mm. The right ovary measures 5.2 x 5.8 cm. The left ovary is not definitely identified. The uterus appears normal. There is a 3.6 cm benign-appearing cyst on the right ovary. There is blood flow to the right ovary. There is a 5.2 cm cyst posterior to the uterus which may be associated with the left ovary but the left ovary is otherwise not identified. There is no solid adnexal mass. There is no free fluid. IMPRESSION: There are two cysts in the pelvis as described. No solid mass or other abnormality is seen. Dictated by: Dictated on workstation # [id number]
[2017-09-29] MEDS ORDERED: metroNIDAZOLE 500 MG (FLAGYL) TAB PO ONE (20:00)
[2017-09-29] MEDS ORDERED: AZITHROMYCIN 250 MG TAB (ZITHROMAX) PO ONE (20:00)
[2017-09-29] MEDS ORDERED: METR500T PO (20:00)
[2017-09-29] MEDS ORDERED: cefTRIAXone INJECTION 1,000 MG in NS (IVPB) 50 ML IV ONE (20:00)
[2017-09-29] MEDS ORDERED: KETOROLAC 30 MG/ML VIAL IVP ONE (20:00)
[2017-09-29 20:39] VITALS: BP 141/87
== END 2017-09-29 20:39 | disposition home or self-care (01) ==
LOC: EDUNIT# 13:09 → ER 13:10
DX: N76.0 Acute vaginitis (principal); B96.89 Other specified bacterial agents as the cause of diseases classified elsewhere; D72.829 Elevated white blood cell count, unspecified; N83.201 Unspecified ovarian cyst, right side; F12.10 Cannabis abuse, uncomplicated; Z87.891 Personal history of nicotine dependence; Z98.51 Tubal ligation status; Z87.448 Personal history of other diseases of urinary system; Z80.0 Family history of malignant neoplasm of digestive organs; Z80.3 Family history of malignant neoplasm of breast; Z82.49 Family history of ischemic heart disease and other diseases of the circulatory system; Z90.49 Acquired absence of other specified parts of digestive tract; Z87.19 Personal history of other diseases of the digestive system
CPT/HCPCS: 36415; 74177; 76830; 80053; 81000; 84703; 85007; 85027; 87070; 87210; 87220; 87491; 87591; 96365; 96375

== ENCOUNTER 2020-04-03 16:15 | Emergency (ER) | payer SELFPAY ==
[~2020-04-03] VITALS: Ht 177.8 cm; Wt 113.6 kg
[~2020-04-03 16:15] MED LIST changes: +METR500T PO
--- NOTE | 2020-04-03 16:53 | ED GI ---
General Chief Complaint: Rect Problems Stated Complaint: RECTAL BLEEDING Nursing Triage Note: AMB TO ROOM REPORTS FELT BUBBLY IN ABD WENT TO BATHROOM REPORTS NOTICED RECTAL BLEEDNG CONCERN BECAUSE FAMILY HX OF COLON CANCER Sepsis Screen: No Definite Risk Source of Information: Patient Exam Limitations: No Limitations History of Present Illness Date Seen by Provider: Apr 03, 2020 Time Seen by Provider: 16:32 Initial Comments Here with report of bleeding after going to the bathroom today. She denies hard bowel movement or problems like this that are persistent although has had occasional problems. She states that she felt bloated yesterday and felt like that released today but then she noted the bleeding when she was wiping and states that she had to wipe multiple times to get the bleeding to stop. She was concerned about rectal cancer. She had similar episode during but did not get colonoscopy afterwards. Does not know of if she has hemorrhoids or not. Timing/Duration: 1 Hour Severity/Quality: Moderate Location: Other (Rectal) Radiation: No Radiation Modifying Factors: Worsens With Defecating Associated Symptoms: No Nausea/Vomiting, No Weakness Allergies and Home Medications Allergies Uncoded Allergies: EYE DROPS (Allergy, Mild, 10/03/16) Home Medications Ibuprofen 600 Mg Tablet, 600 MG PO Q6H PRN for PAIN-MILD TO MODERATE Prescribed by: TOMASA FAUST on 10/05/16 0830 Metronidazole 500 Mg Tablet, 500 MG PO BID Prescribed by: ARTUR PERDUE on 09/29/171999 Vit/Iron Fumarate/FA 1 Each Tablet, 1 EACH PO kimberly, (Reported) Patient Home Medication List Home Medication List Reviewed: Yes Review of Systems Review of Systems Constitutional: No chills, No fever Respiratory: No Symptoms Reported Cardiovascular: No Symptoms Reported Gastrointestinal: See HPI; Denies Constipated, Denies Diarrhea, Denies Nausea; Rectal Bleeding; Denies Vomiting Past Lvhzaay-Byoqqx-Xxcsbj Hx Past Med/Social Hx: Reviewed Nursing Past Med/Soc Hx Patient Social History Alcohol Use: Denies Use Recreational Drug Use: No Drug of Choice: marijuana Smoking Status: Current Everyday Smoker Type Used: Cigarettes Former Smoker, Quit: Aug 05, 2015 Recent Foreign Travel: No Contact w/Someone Who Travel: No Recent Infectious Disease Expo: No Recent Hopitalizations: No Immunizations Up To Date Tetanus Booster (TDap): Less than 5yrs Seasonal Allergies Seasonal Allergies: Yes (pollen) Past Medical History Surgeries: Yes Gallbladder, Orthopedic, Tubal Ligation Respiratory: No Cardiac: No ( induced htn) Neurological: No Reproductive Disorders: No Female Reproductive Disorders: Denies Sexually Transmitted Disease: No HIV/AIDS: No Genitourinary: No Gastrointestinal: Yes (gall bladder removed, recurrent diarrhea since then) Gall Bladder Disease Musculoskeletal: Yes (tibia and fibula in 6th grade) Fractures Endocrine: No HEENT: Yes Cataract Loss of Vision: Denies Hearing Impairment: Denies Cancer: No Psychosocial: No Integumentary: No Blood Disorders: No Adverse Reaction/Blood Tranf: No Family Medical History Reviewed Nursing Family Hx Asthma 19 FATHER, Onset:Unknown Cataracts Paternal Grandmother, Onset:Unknown Colon cancer Paternal Aunt, Onset:Unknown Diabetes mellitus Paternal Grandmother, Onset:Unknown FH: alcoholism 19 FATHER, Onset:Unknown 19 MOTHER, Onset:Unknown G8 BROTHER, Onset:Unknown FH: breast cancer Paternal Aunt, Onset:Unknown FH: skin cancer Paternal Grandmother, Onset:Unknown FH: stroke 19 FATHER, Onset:Unknown Kidney disease 19 MOTHER, Onset:Unknown (kidney infections) Paternal Grandmother, Onset:Unknown (kidney infections) Myocardial infarction Paternal Grandfather, Onset:Unknown Physical Exam Vital Signs Vital Signs - First Documented 04/03/20 16:19 Temp 36.8 Pulse 89 B/P (MAP) 137/104 (115) Pulse Ox 99 O2 Delivery Room Air Capillary Refill : Less Than 3 Seconds Height/Weight/BMI Height: 5'10.00" Weight: 230lbs. 0.2oz. 104.671570lg; 35.00 BMI Method:Stated General Appearance: WD/WN, no apparent distress, obese Respiratory: lungs clear, normal breath sounds Cardiovascular: regular rate, rhythm, no murmur Gastrointestinal: non tender, soft Genital/Rectal: other (Rectal exam shows normal tone. There is small, bleeding hemorrhoid at the posterior midline aspect. This started bleeding some after rectal exam. Appears to be irritated tissue at base of hemorrhoid. Rectal exam does not reveal any mass and otherwise normal stool that was brown. Bleeding seems to be external at that posterior hemorrhoid.) Progress/Results/Core Measures Results/Orders Vital Signs/I&O 04/03/20 16:19 Temp 36.8 Pulse 89 B/P (MAP) 137/104 (115) Pulse Ox 99 O2 Delivery Room Air Blood Pressure Mean: 115 Progress Progress Note : Progress Note Seen and evaluated. Rectal exam performed. Bleeding hemorrhoid noted. Outpatient care discussed as well as need for follow-up for further evaluation including colonoscopy. Patient verbalized understanding. I will send a copy to the chart to Dr. Burch. Discharged home with return precautions. Patient verbalized understanding of instructions and agreement with plan. Departure Impression Primary Impression: Hemorrhoids Qualified Codes: K64.9 - Unspecified hemorrhoids Disposition: HOME, SELF-CARE Condition: Stable Departure-Patient Inst. Decision time for Depature: 16:51 Referrals: RADHA BURCH MD (PCP/Family) Primary Care Physician Patient Instructions: Hemorrhoids (DC) Add. Discharge Instructions: All discharge instructions reviewed with patient and/or family. Voiced understanding. You may use Preparation H ointment or the generic equivalent to rectum per package directions. You should use this over the next several days until this settles down. Try not to wipe aggressively. You may use a sitz bath or shower sprayer to clean after bowel movement as this will help as well. It is very important that you follow-up with your doctor for further evaluation and referral for colonoscopy. Return for persistent or sustained bleeding, increased pain or other concerns as needed. Copy Copies To 1: RADHA BURCH MD, TIMOTHY D MD Apr 03, 2020 16:53
[2020-04-03 16:59] VITALS: BP 138/100
== END 2020-04-03 16:59 | disposition home or self-care (01) ==
LOC: EDUNIT# 16:15 → ER 16:16
DX: K64.9 Unspecified hemorrhoids (principal); E66.9 Obesity, unspecified; F17.210 Nicotine dependence, cigarettes, uncomplicated; Z68.35 Body mass index [BMI] 35.0-35.9, adult; Z80.0 Family history of malignant neoplasm of digestive organs; Z83.3 Family history of diabetes mellitus; Z80.3 Family history of malignant neoplasm of breast; Z82.49 Family history of ischemic heart disease and other diseases of the circulatory system
CPT/HCPCS: 99284